=== PATIENT | female | born 1940 | race Hispanic/Latino ===

== ENCOUNTER → 2020-09-03 | Outpatient (CLI) | payer OTHER ==
[~2020-09-03] MED LIST: ACET-3194 PO; AMLO-258 PO; ATOR20TA65 PO; CLON0.1T PO; FAMO-136 PO; FERR324T12 PO; FOLI0.8T2 PO; FOLI1TAB15 PO; GABA-529 PO; GLIP-196 PO; HONE15GE TP; INSLAN SQ; INSU100C6 SQ; LACT10SO9 PO; LINA5TAB PO; LOSA1TAB42 PO; POLY17PO4 PO; TRAM50TA4 PO; ZINC56.7 TP; [UNRECOGNIZED DRUG - CODE] IV
== END | disposition home or self-care (01) ==
LOC: SHCH 13:59
PROVIDERS: ATTEND Internal Medicine Cardiovascular Disease
DX: I08.8 Other rheumatic multiple valve diseases (principal)
CPT/HCPCS: 93306